=== PATIENT | female | born 1945 | race Caucasian/White ===

== ENCOUNTER 2017-08-10 20:06 | Emergency (ER) | payer OTHER ==
[~2017-08-10] VITALS: Ht 149.9 cm; Wt 87.2 kg
[~2017-08-10 20:06] MED LIST: ADVIL,NUPRIN,M200 MG PO; ALLERGY25 M3 PO; AMLODIPINE BESY10 MG PO; AMLODIPINE BESYL5 MG PO; APRESOLINE50 MG PO; ASPIRIN81 M2 PO; AUGMENTIN875 MG PO; CELEXA40 MG PO; CIPRO500 MG PO; CLONAZEPAM0.5 MG PO; COMPLETE MULTI1 EAC3 PO; CYANOCOBALAM1000 MCG PO; DELTASONE20 M1 PO; DURAGESIC12 MCG TD; ELIQUIS5 MG PO; ENDOCET 5-3251 EACH PO; FENTANYL1 EAC5 TD; FLEXERIL10 MG PO; GLIPIZIDE5 MG PO; HYDROCODON-ACE1 EAC7 PO; KLONOPIN0.5 M1 PO; LASIX40 MG PO; LOPERAMIDE2 M1 PO; LOPRESSOR50 MG PO; MAG-OXIDE400 MG PO; MECLIZINE HCL25 MG PO; MONTELUKAST SOD10 MG PO; MOTRIN600 MG PO; NAPROSYN500 MG PO; NITROSTAT0.4 MG SL; NORVASC10 MG PO; OXAYDO5 MG PO; PERCOCET 5/31 TABLET PO; POTASSIUM CHLO10 ME4 PO; POTASSIUM CHLO20 ME1 PO; PROAIR HFA8.5 GM IH; PROVENTIL HFA6.7 GM IH; SIMVASTATIN80 MG PO; SYMBICORT60 INHALA1 IH; ULTRAM50 MG PO; VALSARTAN160 MG PO; VITAMIN B-121000 MCG PO; ZESTORETIC 20-1 EAC1 PO; ZESTORETIC 20-1 EAC2 PO; ZESTORETIC,P1 TABLE2 PO; ZOCOR80 MG PO
[2017-08-10] MEDS ORDERED: MOBIC7.5 MG PO (23:02)
[2017-08-10 23:16] VITALS: BP 164/78
== END 2017-08-10 23:18 | disposition home or self-care (01) ==
LOC: EME 20:06
DX: M25.571 Pain in right ankle and joints of right foot (principal); E11.9 Type 2 diabetes mellitus without complications; Z79.01 Long term (current) use of anticoagulants; Z88.6 Allergy status to analgesic agent; Z88.5 Allergy status to narcotic agent
CPT/HCPCS: 73610; 99281; 99284

== ENCOUNTER 2017-12-23 16:29 | Emergency (ER) | payer OTHER ==
[~2017-12-23] VITALS: Ht 149.9 cm; Wt 86.3 kg
[~2017-12-23 16:29] MED LIST changes: +MOBIC7.5 MG PO
[2017-12-23 17:32] VITALS: BP 154/78
== END 2017-12-23 17:34 | disposition home or self-care (01) ==
LOC: EME 16:29
DX: S00.81XA Abrasion of other part of head, initial encounter (principal); W10.1XXA Fall (on)(from) sidewalk curb, initial encounter; Y93.01 Activity, walking, marching and hiking; I11.0 Hypertensive heart disease with heart failure; I50.9 Heart failure, unspecified; E11.9 Type 2 diabetes mellitus without complications; I25.2 Old myocardial infarction; E78.5 Hyperlipidemia, unspecified; I25.10 Atherosclerotic heart disease of native coronary artery without angina pectoris; M19.90 Unspecified osteoarthritis, unspecified site; F41.9 Anxiety disorder, unspecified; Z79.84 Long term (current) use of oral hypoglycemic drugs; Z79.82 Long term (current) use of aspirin; Z95.1 Presence of aortocoronary bypass graft; Z95.5 Presence of coronary angioplasty implant and graft; Z98.890 Other specified postprocedural states; Z90.49 Acquired absence of other specified parts of digestive tract; Z88.6 Allergy status to analgesic agent; Z88.5 Allergy status to narcotic agent
CPT/HCPCS: 70450; 99281; 99283